=== PATIENT | female | born 1995 ===

== ENCOUNTER 2022-06-04 06:53 | Inpatient (IN) | payer OTHER ==
[~2022-06-04] VITALS: Ht 165.1 cm; Wt 127.9 kg
[2022-06-04] MEDS ORDERED: FOLIC ACID20 MG PO (07:08)
[2022-06-04] MEDS ORDERED: IRON325 MG PO (07:08)
[2022-06-04] MEDS ORDERED: PRENATAL TABLE1 EAC1 PO (07:08)
== END 2022-06-07 12:45 | disposition home or self-care (01) | DRG 832 ==
LOC: LDR 06:53 → OB/GYN 06:53
PROVIDERS: ADMIT Specialist; ATTEND Specialist
PROC: 4A1HXCZ Monitoring of Products of Conception, Cardiac Rate, External Approach (ICD-10-PCS; principal; 2022-06-04)
PROC: BY4FZZZ Ultrasonography of Third Trimester, Single Fetus (ICD-10-PCS; 2022-06-04)
DX: O36.5130 Maternal care for known or suspected placental insufficiency, third trimester, not applicable or unspecified (principal); O98.913 Unspecified maternal infectious and parasitic disease complicating pregnancy, third trimester; O99.820 Streptococcus B carrier state complicating pregnancy; O99.213 Obesity complicating pregnancy, third trimester; O99.013 Anemia complicating pregnancy, third trimester; D64.89 Other specified anemias; E66.8 Other obesity; O26.843 Uterine size-date discrepancy, third trimester; Z3A.37 37 weeks gestation of pregnancy; Z20.822 Contact with and (suspected) exposure to COVID-19

== ENCOUNTER 2022-06-12 13:45 | Inpatient (IN) | payer OTHER ==
[~2022-06-12] VITALS: Ht 165.1 cm; Wt 123.4 kg
[~2022-06-12 13:45] MED LIST: FOLIC ACID20 MG PO; IRON325 MG PO; PRENATAL TABLE1 EAC1 PO
== END 2022-06-22 14:31 | disposition home or self-care (01) | DRG 807 ==
LOC: LDR 06-20 05:31 → OB/GYN 06-20 05:31 → LDR 06-20 07:11 → OB/GYN 06-20 16:23 → LDR 06-23 13:45
PROVIDERS: ADMIT Specialist; ATTEND Specialist
PROC: 10E0XZZ Delivery of Products of Conception, External Approach (ICD-10-PCS; principal; 2022-06-20)
PROC: 0UQG7ZZ Repair Vagina, Via Natural or Artificial Opening (ICD-10-PCS; 2022-06-20)
PROC: 0W8NXZZ Division of Female Perineum, External Approach (ICD-10-PCS; 2022-06-20)
PROC: 4A1HXCZ Monitoring of Products of Conception, Cardiac Rate, External Approach (ICD-10-PCS; 2022-06-20)
DX: O71.4 Obstetric high vaginal laceration alone (principal); Z37.0 Single live birth; O99.824 Streptococcus B carrier state complicating childbirth; Z3A.39 39 weeks gestation of pregnancy; Z20.822 Contact with and (suspected) exposure to COVID-19

== ENCOUNTER → 2022-09-14 | Emergency (ER) | payer OTHER ==
[~2022-09-14] VITALS: Ht 165.1 cm; Wt 118.4 kg
== END | disposition home or self-care (01) ==
LOC: ER 11:07
DX: K52.89 Other specified noninfective gastroenteritis and colitis (principal); N93.9 Abnormal uterine and vaginal bleeding, unspecified